=== PATIENT | female | born 1945 | race Caucasian/White ===

== ENCOUNTER 2020-02-16 07:14 | Inpatient (IN) ==
[2020-02-16] MEDS ORDERED: PANTOPRAZOLE 40 MG VIAL IV STA (07:45)
[2020-02-16] MEDS ORDERED: ONDANSETRON 4 MG/2 ML VIAL IV STA (07:45)
[2020-02-16] MEDS ORDERED: MORPHINE 4 MG/1 ML VIAL IV STA (07:45)
[2020-02-16] MEDS ORDERED: SODIUM CHLORIDE 0.9% 500 ML IV STA (07:45)
[2020-02-16 08:35] LABS: Basophils # 0.1 10*3/uL (0.0-0.2); Basophils % 0.2 % (0.0-0.8); Hematocrit 43.7 VOL% (35.7-47.0); Immature Granulocytes % 0.5 %; Immature Granulocytes Absolute 0.12 #; Lymphocytes # 1.1 10*3/uL (1.4-4.0); Lymphocytes % 4.6 % (21.3-54.2); Mean Corpuscular HGB Conc 34.3 GM/DL (32-36); Mean Corpuscular Volume 94.6 FL (87-102); Mean Platelet Volume 9.5 FL (9.6-12.0); Monocytes % 5.5 % (1.7-12.7); Neutrophils % 89.2 % (38.7-73.9); Platelet Count 467 T/CUMM (130-400); Red Blood Count 4.62 MC/CUMM (3.8-5.5); Red Cell Distribution Width 12.7 % (9.3-17.3); White Blood Count 24.1 T/CUMM (4-12)
[2020-02-16 08:46] LABS: Bilirubin,Urine Negative (Negative); Blood, Urine Small mg/dL (Negative); Glucose,Urine (UA) Negative (Negative); Hyaline Casts,Urine 17 /LPF (0-3); Ketones,Urine 20 mg/dL (Negative); Mucus,Urine Many /LPF (Occasional); Nitrite,Urine Negative (Negative); Protein,Urine 100 MG/DL; RBC,Urine 43 /HPF (0-4); Renal Epithelial Cells,Urine Occasional /HPF (<1); Squamous Epithelial Cell,Urine Occasional /HPF (0-10); Urine Appearance Slightly Hazy (Clear); Urine Color Amber (Yellow); Urine Specific Gravity 1.025 (1.001-1.035); WBC,Urine 51 /HPF (0-6)
[2020-02-16 08:58] LABS: Albumin 3.8 G/DL (3.4-5.0); Bilirubin,Total 0.5 MG/DL (0.2-1.0); Calcium 10.2 MG/DL (8.5-10.1); Osmolality,Calculated 270.4 MOS/KG (273-304); Total Protein 7.4 G/DL (6.4-8.3)
[2020-02-16 09:10] LABS: Band Neutrophils 3 % (0-10); Lymphocytes 5 % (20-55); Segmented Neutrophils 84 % (50-85); Total Cells Counted 100
[2020-02-16 09:11] LABS: Macrocytosis Slight; Platelet Estimate Normal
[2020-02-16] MEDS ORDERED: MEROPENEM 1,000 MG in SODIUM CHLORIDE 0.9% 100 ML IV STA (10:04)
[2020-02-16] MEDS ORDERED: MEROPENEM 500 MG VIAL ONE (10:14)
[2020-02-16] MEDS ORDERED: SODIUM CHLORIDE 0.9% 100 ML IV ONE (10:14)
[2020-02-16] MEDS ORDERED: GLUCAGON 1 MG VIAL IM PRN (11:00)
[2020-02-16] MEDS ORDERED: ACETAMINOPHEN 325 MG TABLET PO PRN (11:00)
[2020-02-16] MEDS ORDERED: DEXTROSE 50% 25 GM/50 ML VIAL IV PRN (11:00)
[2020-02-16] MEDS ORDERED: MAGNESIUM SULF RIDER 4 GM in PREMIX 1 EACH IV PRN (11:11)
[2020-02-16] MEDS ORDERED: MAGNESIUM SULF RIDER 2 GM in PREMIX 1 EACH IV PRN (11:11)
[2020-02-16] MEDS ORDERED: HYDROmorphone 2 MG/1 ML VIAL IV PRN (12:02)
[2020-02-16] MEDS: PIPERACILLIN/TAZOBACTAM 3,375 MG in SODIUM CHLORIDE 0.9% 100 ML IV SCH ×2 (14:48→20:24)
[2020-02-16] MEDS: SODIUM CHLORIDE 0.9% 1,000 ML IV SCH ×2 (14:48→20:24)
[2020-02-16] MEDS ORDERED: PROMETHAZINE INJ 25 MG in SODIUM CHLORIDE 0.9% 50 ML IV PRN (17:08)
[2020-02-16] MEDS ORDERED: MEPERIDINE 25 MG/1 ML VIAL IV PRN (17:08)
[2020-02-16] MEDS ORDERED: diphenhydrAMINE 50 MG/1 ML VIAL IV PRN (17:08)
[2020-02-16] MEDS ORDERED: ONDANSETRON 4 MG/2 ML VIAL IV PRN (17:08)
[2020-02-16 18:01] LABS: Cancer Antigen 19-9 7.8 U/ML (0-37); Carcinoembryonic Antigen 1.6 NG/ML (0.0-5.0)
[2020-02-16] MEDS ORDERED: SUGAMMADEX 200 MG/2 ML VIAL IV ONE (18:05)
[2020-02-16] MEDS ORDERED: SEVOFLURANE 1 UNIT/15 MINUTE INH ONE (18:18)
[2020-02-16] MEDS ORDERED: MIDAZOLAM 2 MG/2 ML VIAL ONE (18:18)
[2020-02-16] MEDS ORDERED: LIDOCAINE 2% 5 ML VIAL ONE (18:18)
[2020-02-16] MEDS ORDERED: fentaNYL 100 MCG/2 ML VIAL ONE (18:18)
[2020-02-16] MEDS ORDERED: propofoL 200 MG/20 ML VIAL IV ONE ×2 (18:18→19:14)
[2020-02-16] MEDS ORDERED: ROCURONIUM 100 MG/10 ML VIAL IV ONE (18:19)
[2020-02-16] MEDS ORDERED: DEXAMETHASONE 4 MG/1 ML VIAL ONE (18:19)
[2020-02-16] MEDS ORDERED: ONDANSETRON 4 MG/2 ML VIAL ONE (18:19)
[2020-02-16] MEDS ORDERED: SUCCINYLCHOLINE 200 MG/10 ML VIAL ONE (18:19)
[2020-02-16 18:21] LABS: Bacteria,Urine Occasional /HPF (Few); Bilirubin,Urine Negative (Negative); Blood, Urine Negative (Negative); Calcium Oxalate Crystals,Urine Occasional /HPF (Few); Glucose,Urine (UA) Negative (Negative); Ketones,Urine 5 mg/dL (Negative); Nitrite,Urine Negative (Negative); Protein,Urine 30 MG/DL; RBC,Urine 16 /HPF (0-4); Squamous Epithelial Cell,Urine Occasional /HPF (0-10); Urine Appearance CLEAR (Clear); Urine Color Yellow (Yellow); Urine Specific Gravity > 1.060 (1.001-1.035); WBC,Urine 3 /HPF (0-6)
[2020-02-16] MEDS ORDERED: PHENYLEPHRINE 1 MG/10 ML SYRINGE IV ONE (18:21)
[2020-02-16 20:15] LABS: Hematocrit 43.9 VOL% (35.7-47.0); Hemoglobin 14.3 GM/DL (12.0-16.0)
[2020-02-16] MEDS: HYDROmorphone 2 MG/1 ML VIAL IV PRN (20:25)
[2020-02-16] MEDS: POTASSIUM CHLORIDE 20 MEQ TABLET PO PRN (22:57)
[2020-02-17] MEDS: POTASSIUM CHLORIDE 20 MEQ TABLET PO PRN ×2 (00:49→03:02)
[2020-02-17] MEDS: ONDANSETRON 4 MG/2 ML VIAL IV PRN ×3 (00:58→21:36)
[2020-02-17] MEDS: HYDROmorphone 2 MG/1 ML VIAL IV PRN ×3 (00:58→21:38)
[2020-02-17] MEDS: PIPERACILLIN/TAZOBACTAM 3,375 MG in SODIUM CHLORIDE 0.9% 100 ML IV SCH ×3 (03:02→20:02)
[2020-02-17] MEDS: SODIUM CHLORIDE 0.9% 1,000 ML IV SCH ×3 (03:04→20:03)
[2020-02-17 04:27] LABS: Basophils # 0.1 10*3/uL (0.0-0.2); Basophils % 0.2 % (0.0-0.8); Eosinophils % 0.1 % (0.00-10.9); Hematocrit 44.8 VOL% (35.7-47.0); Hemoglobin 14.5 GM/DL (12.0-16.0); Immature Granulocytes % 0.6 %; Immature Granulocytes Absolute 0.15 #; Lymphocytes # 0.8 10*3/uL (1.4-4.0); Lymphocytes % 3.2 % (21.3-54.2); Mean Corpuscular HGB Conc 32.4 GM/DL (32-36); Mean Corpuscular Volume 98.7 FL (87-102); Mean Platelet Volume 9.9 FL (9.6-12.0); Monocytes % 8.7 % (1.7-12.7); Neutrophils % 87.2 % (38.7-73.9); Platelet Count 399 T/CUMM (130-400); Red Blood Count 4.54 MC/CUMM (3.8-5.5); White Blood Count 24.2 T/CUMM (4-12)
[2020-02-17 04:46] LABS: Risk Ratio 3.17; VLDL CHOLESTEROL 20.4 MG/DL
[2020-02-17 04:59] LABS: Calcium 8.8 MG/DL (8.5-10.1); Osmolality,Calculated 281.7 MOS/KG (273-304)
[2020-02-17 07:09] LABS: Lymphocytes 1 % (20-55); Platelet Estimate Increased; Polychromasia Slight; Segmented Neutrophils 91 % (50-85); Total Cells Counted 100
[2020-02-17] MEDS ORDERED: POLYETHYLENE GLYCOL POWDER 17 GM PACK PO SCH (09:00)
[2020-02-17] MEDS ORDERED: SIMVASTATIN 20 MG TABLET PO SCH (09:00)
[2020-02-17] MEDS ORDERED: MULTIVITAMIN (CENTRUM) TABLET PO SCH (09:00)
[2020-02-17] MEDS: lisinopriL 20 MG TABLET PO SCH (09:09)
[2020-02-17 10:36] LABS: Hematocrit 40.7 VOL% (35.7-47.0); Hemoglobin 13.3 GM/DL (12.0-16.0)
[2020-02-18] MEDS: SODIUM CHLORIDE 0.9% 1,000 ML IV SCH ×3 (03:45→19:00)
[2020-02-18] MEDS: PIPERACILLIN/TAZOBACTAM 3,375 MG in SODIUM CHLORIDE 0.9% 100 ML IV SCH ×3 (03:46→21:10)
[2020-02-18 05:28] LABS: Basophils % 0.1 % (0.0-0.8); Eosinophils # 0.1 10*3/uL (0.0-0.87); Eosinophils % 0.5 % (0.00-10.9); Hematocrit 37.6 VOL% (35.7-47.0); Immature Granulocytes % 0.3 %; Immature Granulocytes Absolute 0.04 #; Lymphocytes % 7.3 % (21.3-54.2); Mean Corpuscular HGB Conc 31.9 GM/DL (32-36); Mean Platelet Volume 9.8 FL (9.6-12.0); Monocytes % 11.1 % (1.7-12.7); Neutrophils % 80.7 % (38.7-73.9); Platelet Count 310 T/CUMM (130-400); Red Blood Count 3.76 MC/CUMM (3.8-5.5); Red Cell Distribution Width 13.3 % (9.3-17.3); White Blood Count 13.6 T/CUMM (4-12)
[2020-02-18 05:49] LABS: Band Neutrophils 2 % (0-10); Lymphocytes 7 % (20-55); Platelet Estimate Adequate; Segmented Neutrophils 84 % (50-85); Total Cells Counted 100
[2020-02-18 05:54] LABS: Calcium 8.2 MG/DL (8.5-10.1); Osmolality,Calculated 282.5 MOS/KG (273-304)
[2020-02-18] MEDS: POTASSIUM CHLORIDE 20 MEQ TABLET PO PRN ×4 (06:14→18:48)
[2020-02-18] MEDS: lisinopriL 20 MG TABLET PO SCH (09:22)
[2020-02-18] MEDS: HYDROmorphone 2 MG/1 ML VIAL IV PRN (09:45)
[2020-02-18] MEDS: PANTOPRAZOLE 40 MG VIAL IV SCH (18:27)
[2020-02-18] MEDS: SIMVASTATIN 20 MG TABLET PO SCH (21:14)
[2020-02-19] MEDS: PIPERACILLIN/TAZOBACTAM 3,375 MG in SODIUM CHLORIDE 0.9% 100 ML IV SCH ×3 (03:45→19:30)
[2020-02-19 06:10] LABS: Basophils % 0.2 % (0.0-0.8); Eosinophils # 0.2 10*3/uL (0.0-0.87); Eosinophils % 0.9 % (0.00-10.9); Hematocrit 40.1 VOL% (35.7-47.0); Hemoglobin 13.1 GM/DL (12.0-16.0); Immature Granulocytes % 0.7 %; Immature Granulocytes Absolute 0.12 #; Lymphocytes % 6.4 % (21.3-54.2); Mean Corpuscular HGB Conc 32.7 GM/DL (32-36); Mean Platelet Volume 9.7 FL (9.6-12.0); Monocytes % 7.5 % (1.7-12.7); Neutrophils % 84.3 % (38.7-73.9); Platelet Count 392 T/CUMM (130-400); Red Blood Count 4.05 MC/CUMM (3.8-5.5); White Blood Count 16.3 T/CUMM (4-12)
[2020-02-19 06:30] LABS: Calcium 8.8 MG/DL (8.5-10.1); Osmolality,Calculated 278.5 MOS/KG (273-304)
[2020-02-19] MEDS: POTASSIUM CHLORIDE 20 MEQ TABLET PO PRN ×2 (09:09→14:20)
[2020-02-19] MEDS: lisinopriL 20 MG TABLET PO SCH (09:09)
[2020-02-19] MEDS: SODIUM CHLOR 0.9% KCL 40 MEQ 40 MEQ/1,000 ML BAG IV SCH ×3 (09:11→21:51)
[2020-02-19] MEDS ORDERED: BUPIVACAINE MPF 0.25% 30 ML VIAL ONE (09:35)
[2020-02-19] MEDS ORDERED: LIDOCAINE 1%/EPI INJ 20 ML VIAL ONE (09:35)
[2020-02-19] MEDS ORDERED: MEPERIDINE 25 MG/1 ML VIAL IV PRN (10:07)
[2020-02-19] MEDS ORDERED: diphenhydrAMINE 50 MG/1 ML VIAL IV PRN (10:07)
[2020-02-19] MEDS ORDERED: PROMETHAZINE INJ 25 MG in SODIUM CHLORIDE 0.9% 50 ML IV PRN (10:07)
[2020-02-19] MEDS ORDERED: ONDANSETRON 4 MG/2 ML VIAL IV PRN (10:07)
[2020-02-19] MEDS ORDERED: LIDOCAINE 2% 5 ML VIAL ONE (11:30)
[2020-02-19] MEDS ORDERED: MIDAZOLAM 2 MG/2 ML VIAL ONE (11:30)
[2020-02-19] MEDS ORDERED: propofoL 200 MG/20 ML VIAL IV ONE (11:30)
[2020-02-19] MEDS ORDERED: fentaNYL 100 MCG/2 ML VIAL ONE (11:30)
[2020-02-19] MEDS: PANTOPRAZOLE 40 MG VIAL IV SCH (14:20)
[2020-02-19] MEDS: SIMVASTATIN 20 MG TABLET PO SCH (21:41)
[2020-02-20] MEDS: PIPERACILLIN/TAZOBACTAM 3,375 MG in SODIUM CHLORIDE 0.9% 100 ML IV SCH ×3 (06:01→23:53)
[2020-02-20] MEDS: SODIUM CHLOR 0.9% KCL 40 MEQ 40 MEQ/1,000 ML BAG IV SCH (08:33)
[2020-02-20] MEDS: SODIUM CHLORIDE 0.9% 1,000 ML IV SCH (08:34)
[2020-02-20] MEDS: lisinopriL 20 MG TABLET PO SCH (08:53)
[2020-02-20] MEDS: PANTOPRAZOLE 40 MG VIAL IV SCH (08:53)
[2020-02-20 09:40] LABS: Basophils # 0.1 10*3/uL (0.0-0.2); Basophils % 0.3 % (0.0-0.8); Eosinophils # 0.6 10*3/uL (0.0-0.87); Eosinophils % 4.1 % (0.00-10.9); Hematocrit 36.3 VOL% (35.7-47.0); Hemoglobin 11.9 GM/DL (12.0-16.0); Immature Granulocytes % 1.2 %; Immature Granulocytes Absolute 0.18 #; Lymphocytes # 1.4 10*3/uL (1.4-4.0); Lymphocytes % 9.3 % (21.3-54.2); Mean Corpuscular HGB Conc 32.8 GM/DL (32-36); Mean Corpuscular Volume 99.2 FL (87-102); Mean Platelet Volume 9.3 FL (9.6-12.0); Monocytes % 7.4 % (1.7-12.7); Neutrophils % 77.7 % (38.7-73.9); Platelet Count 415 T/CUMM (130-400); Red Blood Count 3.66 MC/CUMM (3.8-5.5); Red Cell Distribution Width 13.2 % (9.3-17.3); White Blood Count 14.7 T/CUMM (4-12)
[2020-02-20] MEDS: SIMVASTATIN 20 MG TABLET PO SCH (20:45)
[2020-02-21] MEDS: PIPERACILLIN/TAZOBACTAM 3,375 MG in SODIUM CHLORIDE 0.9% 100 ML IV SCH ×3 (01:45→17:40)
[2020-02-21 04:37] LABS: Basophils # 0.1 10*3/uL (0.0-0.2); Basophils % 0.5 % (0.0-0.8); Eosinophils # 0.6 10*3/uL (0.0-0.87); Eosinophils % 4.6 % (0.00-10.9); Hematocrit 33.4 VOL% (35.7-47.0); Immature Granulocytes % 1.2 %; Immature Granulocytes Absolute 0.15 #; Lymphocytes # 1.7 10*3/uL (1.4-4.0); Lymphocytes % 12.7 % (21.3-54.2); Mean Corpuscular HGB Conc 32.9 GM/DL (32-36); Mean Corpuscular Volume 97.9 FL (87-102); Mean Platelet Volume 9.5 FL (9.6-12.0); Monocytes % 8.2 % (1.7-12.7); Neutrophils % 72.8 % (38.7-73.9); Platelet Count 395 T/CUMM (130-400); Red Blood Count 3.41 MC/CUMM (3.8-5.5); Red Cell Distribution Width 13.1 % (9.3-17.3)
[2020-02-21 05:46] LABS: Calcium 8.2 MG/DL (8.5-10.1); Osmolality,Calculated 286.7 MOS/KG (273-304)
[2020-02-21] MEDS: POTASSIUM CHLORIDE 20 MEQ TABLET PO PRN (06:32)
[2020-02-21] MEDS: PANTOPRAZOLE 40 MG VIAL IV SCH (09:41)
[2020-02-21] MEDS: lisinopriL 20 MG TABLET PO SCH (09:41)
[2020-02-21] MEDS: POTASSIUM CHLORIDE 20 MEQ TABLET PO SCH ×2 (09:41→11:25)
[2020-02-21] MEDS: SIMVASTATIN 20 MG TABLET PO SCH (20:48)
[2020-02-22] MEDS: PIPERACILLIN/TAZOBACTAM 3,375 MG in SODIUM CHLORIDE 0.9% 100 ML IV SCH ×2 (02:16→09:31)
[2020-02-22 05:11] LABS: Basophils # 0.1 10*3/uL (0.0-0.2); Basophils % 0.5 % (0.0-0.8); Eosinophils # 0.5 10*3/uL (0.0-0.87); Eosinophils % 3.6 % (0.00-10.9); Hematocrit 33.8 VOL% (35.7-47.0); Immature Granulocytes % 1.7 %; Immature Granulocytes Absolute 0.23 #; Lymphocytes # 1.7 10*3/uL (1.4-4.0); Lymphocytes % 12.2 % (21.3-54.2); Mean Corpuscular HGB Conc 32.5 GM/DL (32-36); Mean Corpuscular Volume 98.5 FL (87-102); Mean Platelet Volume 9.6 FL (9.6-12.0); Monocytes % 7.7 % (1.7-12.7); Neutrophils % 74.3 % (38.7-73.9); Platelet Count 417 T/CUMM (130-400); Red Blood Count 3.43 MC/CUMM (3.8-5.5); White Blood Count 13.9 T/CUMM (4-12)
[2020-02-22 05:33] LABS: Calcium 8.3 MG/DL (8.5-10.1)
[2020-02-22] MEDS: lisinopriL 20 MG TABLET PO SCH (09:30)
[2020-02-22] MEDS: PANTOPRAZOLE 40 MG VIAL IV SCH (09:30)
[2020-02-22] MEDS: POTASSIUM CHLORIDE 20 MEQ TABLET PO SCH ×2 (09:39→12:59)
[2020-02-22 11:18] VITALS: BP 143/42
== END 2020-02-22 13:30 | disposition home health service (06) | DRG 330 ==
LOC: N.ED 07:14 → N.EDINP 10:29 → SUATTDRO 10:29 → N.EDINP 11:13 → N.3E 11:58
PROVIDERS: ADMIT Internal Medicine; ATTEND Internal Medicine Geriatric Medicine